=== PATIENT | male | born 1985 | race Two or more races ===

== ENCOUNTER 2017-03-23 11:20 | Emergency (ER) | payer SELFPAY ==
[2017-03-23] MEDS ORDERED: Diphtheria,Pertussis(Acell),Tetanus Vaccine 0.5 ML SDV IM ONE (11:32)
[2017-03-23] MEDS ORDERED: cefTRIAXone 1,000 MG VIAL IM ONE (11:33)
[2017-03-23] MEDS ORDERED: Bupivacaine 0.5% 30 ML SDV INJECT ONE (11:34)
--- NOTE | 2017-03-23 12:04 | EDM.PDOC ---
ED HPI GENERAL MEDICAL PROBLEM - General Chief Complaint: Upper Extremity Injury/Pain Stated Complaint: RT ARM PAINFULL AND SWOLLEN Time Seen by Provider: 03/23/17 11:30 Source of Information: Reports: Patient History Limitations: Reports: No Limitations - History of Present Illness INITIAL COMMENTS - FREE TEXT/NARRATIVE: 32 y.o.w.m came to the the ed 3 days after he noticed a lumb at his r mid forearm with pus extruding, he has pain going down and up his arm as well, FROM. No other acute medical issues BP 152/91 pus 70 Temp 36.4 Onset: Unknown/Unsure Onset Date: 03/20/17 Onset Time: 08:00 Duration: Day(s): Location: Reports: Upper Extremity, Right Quality: Reports: Ache, Burning, Dull, Pressure Severity: Mild Improves with: Reports: Rest Worsens with: Reports: Movement Associated Symptoms: Reports: Rash Left Arm Pain Score (Numeric/FACES): 7 - Related Data Allergies Allergy/AdvReac Type Severity Reaction Status Date / Time No Known Allergies Allergy Verified 03/23/17 11:28 Home Meds: Home Meds Cephalexin [Keflex] 500 mg PO Q6HR #40 cap 03/23/17 [Rx] Ibuprofen [Motrin] 600 mg PO TID PRN #30 tab 03/23/17 [Rx] Past Medical History - Past Health History Medical/Surgical History: Denies Medical/Surgical History Social & Family History - Caffeine Use Caffeine Use: Reports: Coffee, Energy Drinks, Soda - Recreational Drug Use Recreational Drug Use: No Review of Systems - Review of Systems Review Of Systems: See Below Constitutional: Reports: No Symptoms Eyes: Reports: No Symptoms Ears: Reports: No Symptoms Nose: Reports: No Symptoms Mouth/Throat: Reports: No Symptoms Respiratory: Reports: No Symptoms Cardiovascular: Reports: No Symptoms GI/Abdominal: Reports: No Symptoms Genitourinary: Reports: No Symptoms Musculoskeletal: Reports: No Symptoms Skin: Reports: Rash, Erythema, Wound (pt satated, pus was draining at home) Neurological: Reports: No Symptoms Psychiatric: Reports: No Symptoms ED EXAM, GENERAL - Physical Exam Exam: See Below Exam Limited By: No Limitations General Appearance: Alert, WD/WN, Mild Distress Eye Exam: Bilateral Eye: Normal Inspection Ears: Normal External Exam Ear Exam: Bilateral Ear: Auricle Normal Nose: Normal Inspection, Normal Mucosa Throat/Mouth: Normal Inspection, Normal Lips, Normal Teeth Head: Atraumatic, Normocephalic Neck: Normal Inspection, Supple Respiratory/Chest: No Respiratory Distress, Lungs Clear Cardiovascular: Normal Peripheral Pulses, Regular Rate, Rhythm, No Edema Peripheral Pulses: 1+: Femoral (L), Femoral (R) GI/Abdominal: Normal Bowel Sounds, Soft (Male) Exam: Deferred Rectal (Males) Exam: Deferred Back Exam: Normal Inspection Extremities: Arm Pain, Other (nonfluctuating mass 2x2 inches r forearm, no pus draining. ) Neurological: Alert, Oriented, CN II-XII Intact Psychiatric: Normal Affect, Normal Mood Skin Exam: Warm, Erythema (right forearm), Rash Lymphatic: No Adenopathy ED TRAUMA EXTREMITY PROCEDURES - Laceration/Wound Repair Right Middle Lateral Arm Appearance: Subcutaneous Anesthetic Type: Local - I&D Site: right forearm Skin Prep: Providone-Iodine (Betadine) Local Anesthesia - Bupivicaine (Marcaine): 0.5% Plain Local Anesthetic Volume: 3cc Area Incised With: 11 Blade Drainage: Bloody Probed to Break Up Loculations: Yes Packed With: 1/2 in. Iodoform Sterile Dressing: Adhesive Dressing Complications: No Complication Description: was immature abscess. Pt stated pus extruded but there was non. Course - Vital Signs Text/Narrative:: 32 y.o.w.m came to the the ed 3 days after he noticed a lumb at his r mid forearm with pus extruding, he has pain going down and up his arm as well, FROM. No other acute medical issues BP 152/91 pus 70 Temp 36.4 PE: Imature abscess r forearm Procedure: Please see note above Impression: Abscess r forearm Tx: I&D, pus + blood extruded. Rocephine, TD reexam: Improved Plan: D/C with instructions. Last Recorded V/S: Last Vital Signs Temp 36.7 C 03/23/17 11:30 Pulse 84 03/23/17 11:30 Resp 20 03/23/17 11:30 BP 152/91 H 03/23/17 11:30 Pulse Ox 100 03/23/17 11:30 - Orders/Labs/Meds Orders: Active Orders 24 hr Category Date Time Status Vaccines to be Administered [RC] PER UNIT ROUTINE Care 03/23/17 11:32 Active CULTURE ANAEROBIC [RM] Stat Lab 03/23/17 12:00 Ordered CULTURE ROUTINE + SMEAR [RM] Stat Lab 03/23/17 12:00 Ordered Meds: Medications Discontinued Medications Generic Name Dose Route Start Last Admin Trade Name Adriaq PRN Reason Stop Dose Admin Bupivacaine HCl 30 ml 03/23/17 11:34 03/23/17 11:57 Marcaine 0.5% INJECT 03/23/17 11:35 30 ml ONETIME ONE Administration Ceftriaxone Sodium 1,000 mg 03/23/17 11:33 03/23/17 11:57 Rocephin IM 03/23/17 11:34 1,000 mg ONETIME ONE Administration Diphtheria/Tetanus/Acell Pertussis 0.5 ml 03/23/17 11:32 03/23/17 11:54 Adacel IM 03/23/17 11:33 0.5 ml .ONCE ONE Administration Departure - Departure Time of Disposition: 12:04 Disposition: Home, Self-Care 01 Condition: Good Clinical Impression: Abscess of forearm, right - Discharge Information Prescriptions: Cephalexin [Keflex] 500 mg PO Q6HR #40 cap Ibuprofen [Motrin] 600 mg PO TID PRN #30 tab PRN Reason: Pain Instructions: Wound Infection, [id number] Referrals: PCP,None [Primary Care Provider] - Forms: ED Department Discharge Additional Instructions: Wound check in am with your PMD, Please tale motrin for pain and take Keflex as recommended. Please come back to te ed if your symptoms get worse acutely - My Orders Last 24 Hours: My Active Orders 03/23/17 11:32 Vaccines to be Administered [RC] PER UNIT ROUTINE 03/23/17 12:00 CULTURE ANAEROBIC [RM] Stat CULTURE ROUTINE + SMEAR [RM] Stat - Assessment/Plan Last 24 Hours: My Active Orders 03/23/17 11:32 Vaccines to be Administered [RC] PER UNIT ROUTINE 03/23/17 12:00 CULTURE ANAEROBIC [RM] Stat CULTURE ROUTINE + SMEAR [RM] Stat
[2017-03-23 12:23] VITALS: BP 133/70
== END 2017-03-23 12:20 | disposition home or self-care (01) ==
LOC: FB.ED 11:20
DX: L02.413 Cutaneous abscess of right upper limb (principal)
CPT/HCPCS: 10060; 87070; 87075; 87205; 90471; 90715; 96372; 99284; J0696; 99283